=== PATIENT | female | born 2000 | race Caucasian/White ===

== ENCOUNTER → 2022-09-05 | Day surgery (SDC) | payer OTHER ==
[2022-09-01 14:13] LABS: BASO # 0.1 10*3/uL (0.0-0.1); BASO % 0.7 % (0.0-1.0); EOS # 0.1 10*3/uL (0.0-0.4); EOS % 0.6 % (1.0-4.0); HEMATOCRIT 35.2 % (37.0-47.0); LYMPH # 2.9 10*3/uL (1.3-4.4); LYMPH % 35.5 % (27.0-41.0); MEAN CELL VOLUME 84.6 fl (81.0-99.0); MEAN CORPUSCULAR HGB 28.4 pg (27.0-31.0); MEAN CORPUSCULAR HGB CONC 33.5 g/dl (33.0-37.0); MEAN PLATELET VOLUME 9.5 fl (9.6-12.3); MONO # 0.9 10*3/uL (0.1-1.0); MONO % 10.4 % (3.0-9.0); NEUT # 4.3 10*3/uL (2.3-7.9); NEUT % 52.7 % (47.0-73.0); PLATELET COUNT AUTOMATED 231 10*3/uL (130-400); RED BLOOD COUNT 4.16 10*6/uL (4.10-5.10); RED CELL DISTRI WIDTH 13.3 % (0-14.5); WHITE BLOOD COUNT 8.2 10*3/uL (4.8-10.8)
[2022-09-01 14:28] LABS: ACT PARTIAL THROMBO TIME 32.3 SECONDS (20.0-32.1); INTERNATIONAL NORM RATIO 1.1 (2.0-3.5)
[~2022-09-05] VITALS: Ht 157.4 cm; Wt 59.0 kg
[~2022-09-05] MED LIST: HAIR, SKIN A66.7 MCG PO
[2022-09-05 09:08] VITALS: BP 108/60
[2022-09-05 11:49] VITALS: BP 130/85
[2022-09-05 12:05] VITALS: BP 131/98
[2022-09-05 12:20] VITALS: BP 133/84
[2022-09-05 12:35] VITALS: BP 127/79
[2022-09-05 12:46] VITALS: BP 134/79
== END | disposition home or self-care (01) ==
LOC: SDC 09-01 13:15
PROVIDERS: ATTEND Specialist
DX: J03.90 Acute tonsillitis, unspecified (principal); J35.01 Chronic tonsillitis; F41.9 Anxiety disorder, unspecified; F32.9 Major depressive disorder, single episode, unspecified; E78.00 Pure hypercholesterolemia, unspecified; F43.10 Post-traumatic stress disorder, unspecified; Z79.01 Long term (current) use of anticoagulants

== ENCOUNTER 2022-09-19 10:02 | Emergency (ER) | payer OTHER ==
[~2022-09-19] VITALS: Ht 160 cm; Wt 59.0 kg
[2022-09-19 11:10] VITALS: BP 117/67
[2022-09-19 11:52] LABS: BASO % 0.3 % (0.0-1.0); EOS % 0.1 % (1.0-4.0); HEMATOCRIT 28.9 % (37.0-47.0); LYMPH # 1.3 10*3/uL (1.3-4.4); LYMPH % 14.7 % (27.0-41.0); MEAN CORPUSCULAR HGB 28.6 pg (27.0-31.0); MEAN CORPUSCULAR HGB CONC 33.2 g/dl (33.0-37.0); MEAN PLATELET VOLUME 9.5 fl (9.6-12.3); MONO # 0.9 10*3/uL (0.1-1.0); MONO % 9.5 % (3.0-9.0); NEUT # 6.7 10*3/uL (2.3-7.9); NEUT % 75.2 % (47.0-73.0); PLATELET COUNT AUTOMATED 252 10*3/uL (130-400); RED BLOOD COUNT 3.36 10*6/uL (4.10-5.10); RED CELL DISTRI WIDTH 13.7 % (0-14.5); WHITE BLOOD COUNT 8.9 10*3/uL (4.8-10.8)
[2022-09-19 13:11] VITALS: BP 118/86
[2022-09-19 13:25] VITALS: BP 121/88
[2022-09-19 13:34] VITALS: BP 108/68
[2022-09-19 13:55] VITALS: BP 123/85
[2022-09-19] MEDS ORDERED: SEPTDS PO (14:00)
[2022-09-19] MEDS ORDERED: TYLENOL W/ CODE30 ML PO (14:01)
[2022-09-19 14:04] VITALS: BP 102/78
== END 2022-09-19 10:59 | disposition home or self-care (01) ==
LOC: ED 10:02
PROVIDERS: Specialist
DX: J95.830 Postprocedural hemorrhage of a respiratory system organ or structure following a respiratory system procedure (principal); Y83.8 Other surgical procedures as the cause of abnormal reaction of the patient, or of later complication, without mention of misadventure at the time of the procedure; Y92.89 Other specified places as the place of occurrence of the external cause